=== PATIENT | male | born 1965 | race Caucasian/White ===

== ENCOUNTER 2016-11-02 15:21 | Emergency (ER) | payer OTHER | END 2016-11-02 18:30 | disposition home or self-care (01) | LOC: ER 15:21 | DX: K40.90 Unilateral inguinal hernia, without obstruction or gangrene, not specified as recurrent (principal); J18.9 Pneumonia, unspecified organism; K52.9 Noninfective gastroenteritis and colitis, unspecified; I10 Essential (primary) hypertension; M71.20 Synovial cyst of popliteal space [Baker], unspecified knee; F17.210 Nicotine dependence, cigarettes, uncomplicated; Z79.899 Other long term (current) drug therapy; Z88.5 Allergy status to narcotic agent | CPT/HCPCS: 36415; Q9967 ==